=== PATIENT | male | born 1970 | race Caucasian/White ===

== ENCOUNTER 2018-03-12 18:10 | Emergency (ER) | payer MEDICAID ==
[~2018-03-12] VITALS: Ht 170.2 cm; Wt 99.8 kg
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
[2018-03-12] MEDS ORDERED: HYDROCODONE/APAP 10/325MG 1 EA TABLET PO ONE (18:30)
[2018-03-12] MEDS ORDERED: IBUPROFEN 600 MG TABLET PO ONE ×2 (18:30→18:34)
[2018-03-12] MEDS ORDERED: HYDROCODONE/APAP 10/325MG 1 EA TABLET ONE (18:34)
--- NOTE | 2018-03-12 18:37 | NUR ---
RESIDENTIAL LEASING AGENT AT BEDSIDE
--- NOTE | 2018-03-12 19:06 | NUR ---
RECEIVED REPORT FROM BEBA BUCIO FOR JAYANT.
--- NOTE | 2018-03-12 19:10 | NUR ---
PT APPEARS COMFORTABLE. AT BEDSIDE.
--- NOTE | 2018-03-12 20:16 | NUR ---
JANIE VARELA AT BEDSIDE SPEAKING TO PT FAMILY REGARDING RESULTS.
--- NOTE | 2018-03-12 20:32 | NUR ---
Patient discharged to home in stable condition. Written and verbal after care instructions given. Patient verbalizes understanding of instruction. ambulatory with a steady gait. instructed pt not to drive. pt verbalize understanding.
[2018-03-12 20:33] VITALS: BP 126/78
== END 2018-03-12 20:34 | disposition home or self-care (01) ==
LOC: ER 18:15
DX: S22.32XA Fracture of one rib, left side, initial encounter for closed fracture (principal); S52.121A Displaced fracture of head of right radius, initial encounter for closed fracture; Y08.89XA Assault by other specified means, initial encounter; Y93.89 Activity, other specified; Y92.89 Other specified places as the place of occurrence of the external cause; Y99.8 Other external cause status
CPT/HCPCS: 71100-TC; 73080-TC; A4606; Z7610